=== PATIENT | male | born 1940 ===

== ENCOUNTER → 2024-03-16 07:40 | Outpatient (REF) | payer MEDICARE, BC, SELFPAY | LOC: RCS 07:40 | PROVIDERS: ATTENDING PHYSICIAN Nurse Practitioner Gerontology; FAMILY PHYSICIAN Family Medicine | DX: R06.02 Shortness of breath (principal); Z86.79 Personal history of other diseases of the circulatory system; I71.20 Thoracic aortic aneurysm, without rupture, unspecified | CPT/HCPCS: 93306 ==

== ENCOUNTER → 2025-05-14 12:33 | Outpatient (REF) | payer MEDICARE, BC, SELFPAY | LOC: RCS 12:33 | PROVIDERS: ATTENDING PHYSICIAN Internal Medicine Cardiovascular Disease; FAMILY PHYSICIAN Family Medicine | DX: Z86.79 Personal history of other diseases of the circulatory system (principal); Q25.43 Congenital aneurysm of aorta | CPT/HCPCS: 93306 ==